=== PATIENT | male | born 1975 | race Caucasian/White ===

== ENCOUNTER 2016-05-14 18:30 | Emergency (ER) | payer MEDICAID ==
[~2016-05-14] VITALS: Ht 170.2 cm; Wt 76.2 kg
[2016-05-14 18:53] VITALS: BP 126/58
--- NOTE | 2016-05-14 21:15 | NUR ---
TO ER OF1
--- NOTE | 2016-05-14 21:15 | NUR ---
Luis Enrique hurtado in [facility] - 05/14/16 at 2115 by LEXX PATIENT TO OF 1
--- NOTE | 2016-05-14 21:43 | NUR ---
40Y/M PATIENT PRESENTS TO ED WITH C/O LT. EYE PAIN X 1 DAY . PT STATES POKED LEFT EYE WITH BRANCH ON WEDNESDAY. PT STATES HE HAS SLIGHT BLURRINESS IN LEFT EYE . DENIES N/V/D; SKIN IS PINK/WARM/DRY, LT. EYE REDNESS; AAOX4 WITH EVEN AND STEADY GAIT; LUNGS CLEAR BL; HR EVEN AND REGULAR; PT DENIES ANY FEVER, CP, SOB, OR COUGH AT THIS TIME; PATIENT STATES PAIN OF 7/10 AT THIS TIME; VSS;ER MD MADE AWARE OF PT STATUS.
--- NOTE | 2016-05-14 22:06 | NUR ---
Patient being evaluated by physician.
[2016-05-14] MEDS ORDERED: FLUORESCEIN OPTH STRIP 1 MG OP ONE (22:10)
[2016-05-14] MEDS ORDERED: TETRACAINE 0.5% OPTH SOL 2 ML BTL OP ONE (22:10)
[2016-05-14] MEDS ORDERED: ACETAMINOPHEN 325 MG TAB PO ONE (22:10)
[2016-05-14] MEDS ORDERED: FLUORESCEIN OPTH STRIP 1 MG ONE ×2 (22:17→22:18)
[2016-05-14] MEDS ORDERED: TETRACAINE 0.5% OPTH SOL 2 ML BTL ONE (22:19)
--- NOTE | 2016-05-14 23:20 | NUR ---
Patient discharged with v/s stable. Written and verbal after care instructions given and explained. Patient alert, oriented and verbalized understanding of instructions. Ambulatory with steady gait. All questions addressed prior to discharge. ID band removed. Patient advised to follow up with PMD. Rx of ERYTHROMYCIN 0.5% OPHTHALMIC OINTMENT, NORCO 5/325 MG given. Patient educated on indication of medication including possible reaction and side effects. Opportunity to ask questions provided and answered.
[2016-05-14 23:21] VITALS: BP 120/60
== END 2016-05-14 23:20 | disposition home or self-care (01) ==
LOC: MED 18:30
DX: S05.02XA Injury of conjunctiva and corneal abrasion without foreign body, left eye, initial encounter (principal); F17.210 Nicotine dependence, cigarettes, uncomplicated; W22.8XXA Striking against or struck by other objects, initial encounter; Y93.89 Activity, other specified; Y92.89 Other specified places as the place of occurrence of the external cause; Y99.8 Other external cause status
CPT/HCPCS: 99284